=== PATIENT | female | born 1995 | race Two or more races ===

== ENCOUNTER 2020-03-05 14:18 | Emergency (ER) | payer MEDICAID, OTHER ==
[~2020-03-05] VITALS: Ht 162.6 cm; Wt 45.4 kg
[2020-03-05 14:41] VITALS: BP 108/71
== END 2020-03-05 17:41 | disposition home or self-care (01) ==
LOC: ER 14:18
DX: G43.909 Migraine, unspecified, not intractable, without status migrainosus (principal)
CPT/HCPCS: 70450